=== PATIENT | female | born 1980 | race Caucasian/White ===

== ENCOUNTER 2024-12-24 08:47 | Outpatient (CLI) | payer OTHER, SELFPAY | END 2024-12-24 08:48 | disposition home or self-care (01) | LOC: NFLDREF 12-25 09:10 | PROVIDERS: Visit Provider Physician Assistant Medical | DX: N30.00 Acute cystitis without hematuria (principal); B96.89 Other specified bacterial agents as the cause of diseases classified elsewhere | CPT/HCPCS: 87086 ==